=== PATIENT | male | born 1985 | race African-American/Black ===

== ENCOUNTER 2018-07-05 20:28 | Emergency (ER) | payer OTHER, SELFPAY ==
[2018-07-05 21:38] LABS: Hemoglobin 15.9 g/dL (14.0-18.0); Mean Corpuscular HGB CONC 33.7 g/dL (32.0-36.0); Mean Corpuscular Hemoglobin 30.7 pg (27.0-31.0); Mean Corpuscular Volume 90.9 fL (78.0-98.0); Mean Platelet Volume 6.9 fL (7.4-10.4); Platelet Count 281 thou/uL (130-400); Red Blood Cell (RBC) Count 5.18 mill/uL (4.70-6.10); White Blood Cell (WBC) Count 9.2 thou/uL (4.8-10.8)
[2018-07-05 21:45] LABS: ALT (SGPT) 15 U/L (8-55); AST (SGOT) 20 U/L (5-34); Albumin 4.2 g/dL (3.5-5.0); Alkaline Phosphatase 78 U/L (40-150); Anion Gap 13 mmol/L (10-20); BUN (Urea Nitrogen) 10 mg/dL (8.9-20.6); Bilirubin, Total 0.3 mg/dL (0.2-1.2); Calc. Creatinine Clearance 0 mL/min (70-130); Calcium 9.7 mg/dL (7.8-10.44); Carbon Dioxide 25 mmol/L (22-29); Chloride 106 mmol/L (98-107); Estimated GFR-MDRD Greater than 90; Globulin 3.3 g/dL (2.4-3.5); Glucose 89 mg/dL (70-105); Lipase 19 U/L (8-78); Potassium 4.1 mmol/L (3.5-5.1); Protein, Total 7.5 g/dL (6.0-8.3); Sodium 140 mmol/L (136-145)
[2018-07-05 21:52] LABS: Eosinophils 5 % (0-10); Lymphocytes 45 % (21-51); MDiff Complete? YES; Monocytes 8 % (0-10); Neutrophil 40 % (42-75)
--- NOTE | 2018-07-05 22:19 | RAD ---
PORTABLE CHEST: 07/05/2018 PROVIDED CLINICAL HISTORY: Chest pain and cough. COMPARISON: 03/27/2015 FINDINGS: The cardiac and mediastinal silhouette are within normal limits. No focal consolidation, pleural flu id, or pneumothorax apparent. IMPRESSION: No evidence for an acute cardiopulmonary process. POS: [facility]
== END 2018-07-05 22:31 | disposition home or self-care (01) ==
LOC: SCSER 20:28
DX: J06.9 Acute upper respiratory infection, unspecified (principal); F17.210 Nicotine dependence, cigarettes, uncomplicated; F41.9 Anxiety disorder, unspecified; Z79.899 Other long term (current) drug therapy
CPT/HCPCS: 71046; 80053; 83690; 84484; 85025; 93005

== ENCOUNTER 2019-03-01 02:39 | Emergency (ER) | payer OTHER, SELFPAY ==
[2019-03-01 03:05] LABS: Bacteria/HPF None Seen HPF (None Seen); Bilirubin Negative (Negative); Blood, Urine Negative (Negative); Clarity Clear (Clear); Glucose, Urine (Dipstick) Normal (Negative); Leukocyte 500 Leu/uL (Negative); Mucous/LPF Rare LPF (<2+); Nitrite Negative (Negative); Protein, Urine (Dipstick) Negative (Neg-Trace); RBC/HPF 0-3 HPF (0-3); Squamous Epithelial 0-3 HPF (0-3); Urobilinogen Normal mg/dL (Less than 2); WBC/HPF Greater than 50 HPF (0-3)
[2019-03-01] MEDS ORDERED: Azithromycin 250 MG TAB ONE (03:19)
[2019-03-01] MEDS ORDERED: cefTRIAXone\\ROCEPHIN 250 MG VIAL ONE (03:19)
[2019-03-01 22:49] LABS: Chlam.trachomatis by PCR,Urine Not Detected (NotDetected)
== END 2019-03-01 03:28 | disposition home or self-care (01) ==
LOC: ERS 02:39
DX: N34.2 Other urethritis (principal); F41.9 Anxiety disorder, unspecified; F17.210 Nicotine dependence, cigarettes, uncomplicated
CPT/HCPCS: 81003; 81015; 87086; 87491; 87591; 96372; 99283; J0696

== ENCOUNTER 2023-09-20 13:45 | Emergency (ER) | payer BC, SELFPAY ==
[2023-09-20] MEDS ORDERED: Lidocaine 1% MPF 2 ML VIAL ONE (14:06)
[2023-09-20] MEDS ORDERED: cefTRIAXone (ROCEPHIN) 500 MG VIAL ONE (14:07)
[2023-09-20 14:37] LABS: Bilirubin Negative (Negative); Blood, Urine Negative (Negative); CAUTI Indications for Culture Dysuria,urgency,freq; Clarity Clear (Clear); Glucose, Urine (Dipstick) Normal (Negative); Ketone, Urine Negative (Negative); Leukocyte 250 Leu/uL (Negative); Mucous/LPF Rare LPF (<2+); Nitrite Negative (Negative); Protein, Urine (Dipstick) Negative (Neg-Trace); RBC/HPF 0-3 HPF (0-3); Specific Gravity, Urine 1.019 (1.002-1.036); Squamous Epithelial 0-3 HPF (0-3); Urobilinogen Normal mg/dL (Less than 2); WBC/HPF 21-50 HPF (0-3); pH, Urine 6.5 (5.0-9.0)
[2023-09-20 14:44] LABS: Bacteria/HPF Rare-Few HPF (None Seen)
[2023-09-20 14:45] LABS: Urine Culture Reflex Yes Yes
[2023-09-21 03:09] LABS: Chlam.trachomatis by PCR,Urine Not Detected (NotDetected); GC N.gonorrhoeae PCR,UrineVOID DETECTED (NotDetected)
== END 2023-09-20 14:46 | disposition home or self-care (01) ==
LOC: ERS 13:45
DX: R36.9 Urethral discharge, unspecified (principal); R30.0 Dysuria; Z87.891 Personal history of nicotine dependence
CPT/HCPCS: 81001; 87086; 87491; 87591; 96372; 99283; J0696